=== PATIENT | female | born 1970 | race Caucasian/White ===

== ENCOUNTER 2019-07-30 01:27 | Emergency (ER) | payer BC ==
--- NOTE | 2019-07-30 02:16 | PDOC ---
History of Present Illness - History of Present Illness Initial Comments: 48 year old female with PMH HTN, HLD, and recent diagnosis of fatty liver and liver cyst presenting with epigastric sharp pain after eating meals and occasionally right upper quadrant pain. Patient states she has had pain for the past few weeks in her epigastrium and right upper quadrant so she had an ultrasound of her abdomen this past week which demonstrated the liver cyst and fatty liver without any gallbladder or other pathology. Denies any medication usage for these pains because she does not want to "complicate her fatty liver". 07/30/19 02:15 <Jung Massey - Last Filed: 07/30/19 02:15> <Cleo Brown - Last Filed: 07/30/19 04:51> - General Chief Complaint: Pain Stated Complaint: ABD PAIN Time Seen by Provider: 07/30/19 02:15 Attending Attestation - Resident Resident Name: Jung Massey - ED Attending Attestation I have performed the following: I have examined & evaluated the patient, The case was reviewed & discussed with the resident, I agree w/resident's findings & plan - HPI HPI: 07/30/19 04:48 Pt comes with abdominal pain She has GERD and has epigastric pain. She has no fever and no other complaints at this time. States that she is feeling better here - Physicial Exam PE: 07/30/19 04:50 VSS Afebrile ABd soft NT ND heart S1S2 RRR Lung CTAB ext no C/C/E - Medical Decision Making 07/30/19 04:51 Home with pepcid and analgesics. <Cleo Brown - Last Filed: 07/30/19 04:51> Past History <Jung Massey - Last Filed: 07/30/19 02:15> <Cleo Brown - Last Filed: 07/30/19 04:51> - Past Medical History Allergies/Adverse Reactions: Allergies Allergy/AdvReac Type Severity Reaction Status Date / Time No Known Allergies Allergy Verified 07/30/19 02:25 Home Medications: Ambulatory Orders Famotidine [Pepcid] 20 mg PO DAILY 20 Days #20 tablet 07/30/19 Mag Hydrox/Al Hydrox/Simeth [Mylanta Suspension -] 30 ml PO Q6H PRN 10 Days #1 bottle 07/30/19 Review of Systems - Review of Systems Constitutional: No: Chills, Diaphoresis, Fever Respiratory: No: Cough, Orthopnea, Shortness of Breath Cardiac (ROS): No: Chest Pain, Edema ABD/GI: Yes: Constipated. No: Diarrhea, Nausea, Vomiting : No: Burning, Dysuria, Discharge Integumentary: No: Lesions, Lumps, Pallor Neurological: No: Headache, Numbness, Paresthesia Psychiatric: No: Anxiety, Depression Hematologic/Lymphatic: No: Anemia, Blood Clots, Easy Bleeding <Jung Massey - Last Filed: 07/30/19 02:15> *Physical Exam - Physical Exam General Appearance: Yes: Nourished, Appropriately Dressed. No: Apparent Distress HEENT: positive: EOMI, ОЛЕГ, Normal ENT Inspection, Normal Voice Neck: positive: Trachea midline, Normal Thyroid, Supple. negative: Tender, Rigid Respiratory/Chest: positive: Lungs Clear, Normal Breath Sounds, Respiratory Distress. negative: Chest Tender, Accessory Muscle Use Cardiovascular: positive: Regular Rhythm, Regular Rate Gastrointestinal/Abdominal: positive: Normal Bowel Sounds, Flat, Soft. negative : Tender Lymphatic: negative: Adenopathy, Tenderness Musculoskeletal: positive: Normal Inspection. negative: Decreased Range of Motion Extremity: positive: Normal Capillary Refill, Normal Inspection, Normal Range of Motion. negative: Tender Integumentary: positive: Normal Color, Dry, Warm Neurologic: positive: Fully Oriented, Alert, Normal Mood/Affect, Normal Response , Motor Strength 5/5 <Jung Massey - Last Filed: 07/30/19 02:15> - Vital Signs Last Vital Signs Temp Pulse Resp BP Pulse Ox 98.2 F 82 17 146/88 100 07/30/19 01:30 07/30/19 01:30 07/30/19 01:30 07/30/19 01:30 07/30/19 01:30 <Cleo Brown - Last Filed: 07/30/19 04:51> ED Treatment Course - Medications Given in the ED: ED Medications Discontinued Medications Generic Name Dose Route Start Last Admin Trade Name Freq PRN Reason Stop Dose Admin Al Hydroxide/Mg Hydroxide 30 ml 07/30/19 02:34 07/30/19 02:39 Mylanta Oral Suspension - PO 07/30/19 02:35 30 ml ONCE ONE Administration Famotidine 10 mg 07/30/19 02:34 07/30/19 02:39 Acid Risk Control Director PO 07/30/19 02:35 10 mg ONCE ONE Administration <Cleo Brown - Last Filed: 07/30/19 04:51> Medical Decision Making - Medical Decision Making 48 year old female with epigastric and right upper quadrant pain for the past few weeks and known hepatic cysts with fatty liver. She describes an epigastric pain after eating that is most suspicious for GERD as her recent ruq ultrasound was negative for choleliths. Will DC patient with Pepcid, Maalox, and Tylenol use instructions as well as one dose of percocet here. 07/30/19 02:31 <Jung Massey - Last Filed: 07/30/19 02:15> Discharge - Discharge Information Problems reviewed: Yes - Admission No <Jung Massey - Last Filed: 07/30/19 02:15> <Cleo Brown - Last Filed: 07/30/19 04:51> - Discharge Information Clinical Impression/Diagnosis: Epigastric pain Condition: Stable Disposition: HOME - Additional Discharge Information Prescriptions: Famotidine [Pepcid] 20 mg PO DAILY 20 Days #20 tablet Mag Hydrox/Al Hydrox/Simeth [Mylanta Suspension -] 30 ml PO Q6H PRN 10 Days #1 bottle PRN Reason: Pain - Follow up/Referral Referrals: Grace Tanner [Primary Care Provider] - Keshav Bowen MD [Staff Physician] - Conner Carrasco MD [Staff Physician] - Ham Otto DO [Staff Physician] - - Patient Discharge Instructions Patient Printed Discharge Instructions: DI for Dyspepsia Additional Instructions: Please take the Pepcid and Maalox daily. Please take Tylenol for the upper stomach pain. Please see the GI doctor on this sheet at your appointment. Please return to ED if you have new or worsening symptoms. - Post Discharge Activity
[2019-07-30 02:26] VITALS: BP 146/88; PULSE 82; TEMP 98.2; BMI 30.3
[2019-07-30] MEDS ORDERED: MAG HYDROX/AL HYDROX/SIMETH 30 ML UNIT-DOSE CUP PO ONE (02:34)
[2019-07-30] MEDS ORDERED: FAMOTIDINE 10 MG TABLET PO ONE (02:34)
[2019-07-30] MEDS ORDERED: MAG HYDROX/AL HYDROX/SIMETH 30 ML UNIT-DOSE CUP ONE (02:37)
[2019-07-30] MEDS ORDERED: FAMOTIDINE 10 MG TABLET ONE (02:37)
== END 2019-07-30 02:45 | disposition home or self-care (01) ==
LOC: JER 01:27
DX: R10.13 Epigastric pain (principal); I10 Essential (primary) hypertension; E78.5 Hyperlipidemia, unspecified; K76.0 Fatty (change of) liver, not elsewhere classified
CPT/HCPCS: 99281-25

== ENCOUNTER 2019-08-02 11:46 | Emergency (ER) | payer BC ==
[2019-08-02 11:53] VITALS: BMI 31.8
--- NOTE | 2019-08-02 12:00 | PDOC ---
Rapid Medical Evaluation Chief Complaint: Pain Medical Evaluation: Allergies Allergy/AdvReac Type Severity Reaction Status Date / Time No Known Allergies Allergy Verified 08/02/19 11:53 Vital Signs Temp Pulse Resp BP Pulse Ox 97.9 F 90 18 159/71 99 08/02/19 11:47 08/02/19 11:47 08/02/19 11:47 08/02/19 11:47 08/02/19 11:47 08/02/19 11:58 This patient had a rapid evaluation by me cc: burning with urination x 1 week after unprotected sexual intercourse HPI: non tender abdomen orders: std screening including hiv and rpr, urine culture and urinalysis This patient will proceed to ed for further evaluation Discharge Disposition - Diagnosis Dysuria - Referrals - Patient Instructions - Post Discharge Activity
[2019-08-02] MEDS ORDERED: PANTOPRAZOLE SODIUM 40 MG VIAL IVPUSH ONE (13:25)
[2019-08-02] MEDS ORDERED: KETOROLAC TROMETHAMINE 30 MG/1 ML VIAL IVPUSH ONE (13:25)
[2019-08-02] MEDS ORDERED: PANTOPRAZOLE SODIUM 40 MG/100 ML BAG IVPB ONE (13:38)
[2019-08-02] MEDS ORDERED: KETOROLAC TROMETHAMINE 30 MG/1 ML VIAL ONE (13:38)
[2019-08-02 14:00] LABS: ALBUMIN 4.2 g/dl (3.4-5.0); ALK PHOS 79 U/L (45-117); ANION GAP 8 MMOL/L (8-16); BILIRUBIN,TOTAL 0.4 mg/dL (0.2-1); BLOOD UREA NITROGEN 8.6 mg/dL (7-18); CALCIUM 9.3 mg/dL (8.5-10.1); CHLORIDE 104 mmol/L (98-107); CO2 26 mmol/L (21-32); CREATININE 0.7 mg/dL (0.55-1.3); GLUCOSE,RANDOM 91 mg/dL (74-106); LIPASE 184 U/L (73-393); MAGNESIUM 2.4 mg/dL (1.8-2.4); POTASSIUM 4.2 mmol/L (3.5-5.1); SGOT/AST 16 U/L (15-37); SGPT/ALT 19 U/L (13-61); SODIUM 138 mmol/L (136-145); TOT PROT 7.9 g/dl (6.4-8.2)
[2019-08-02 14:02] LABS: BASO % 0.3 % (0-2.0); EOS % 0.3 % (0-4.5); HEMATOCRIT 37.2 % (32.4-45.2); HEMOGLOBIN 11.8 GM/dL (10.7-15.3); MCH 22.8 pg (25.7-33.7); MCHC 31.8 g/dl (32.0-36.0); MEAN CELL VOLUME 71.8 fl (80-96); MEAN PLT VOLUME 8.1 fl (7.5-11.1); MONO % 7.2 % (3.8-10.2); NEUT % 64.2 % (42.8-82.8); PLATELET COUNT 308 K/MM3 (134-434); RBC 5.19 M/mm3 (3.60-5.2); WHITE BLOOD COUNT 7.9 K/mm3 (4.0-10.0)
[2019-08-02 14:41] LABS: ANISOCYTOSIS 1+; MACROCYTOSIS 0; OVALOCYTE 1+; PLATELET ESTIMATE NORMAL
--- NOTE | 2019-08-02 14:54 | PDOC ---
History of Present Illness - General Chief Complaint: Pain Stated Complaint: ABD PAIN Time Seen by Provider: 08/02/19 12:47 History Source: Patient Exam Limitations: No Limitations - History of Present Illness Travel History: No Initial Comments: 08/02/19 14:48 48 y/o female with history of GERD and fatty liver presents the ED with complaints of generalized abdominal pain greater in the lower quadrants although she states the pain was worse in her upper abdominal area a few days ago when she came to the ER patient states pain is sharp and intermittent without aggravating or alleviating factors now associated with diarrhea. Patient states had 2 episodes of watery diarrhea yesterday and 5 today. Patient has no urinary complaints, complaints of nausea, fever or chills patient also denies recent travel, or recent illness. Timing/Duration: reports: getting worse Quality: reports: moderate, cramping Abdominal Pain Onset Location: reports: generalized abdomen Activities at Onset: reports: none Aggravating Factors: improves with: None Alleviating Factors: improves with: None Past History - Travel Traveled outside of the country in the last 30 days: No Close contact w/someone who was outside of country & ill: No - Past Medical History Allergies/Adverse Reactions: Allergies Allergy/AdvReac Type Severity Reaction Status Date / Time No Known Allergies Allergy Verified 08/02/19 12:41 Home Medications: Ambulatory Orders NK [No Known Home Medication] 08/02/19 COPD: No HTN: Yes (NO MEDS) - Psycho Social/Smoking Cessation Hx Smoking History: Never smoked Have you smoked in the past 12 months: No Hx Alcohol Use: No Drug/Substance Use Hx: No Patient Lives Alone: No Lives with/in: spouse/SO Abd/GI Specific PMHX - Complaint Specific PMHX Colitis: No Diverticulitis: No GERD: Yes Review of Systems - Review of Systems Able to Perform ROS?: No Is the patient limited Japanese proficient: No Constitutional: No: Symptoms Reported HEENTM: No: Symptoms Reported Respiratory: No: Symptoms reported Cardiac (ROS): No: Symptoms Reported ABD/GI: Yes: Diarrhea, Abdominal cramping. No: Poor Appetite, Poor Fluid Intake : No: Symptoms Reported Musculoskeletal: No: Symptoms Reported Integumentary: No: Symptoms Reported Neurological: No: Symptoms reported Hematologic/Lymphatic: No: Symptoms Reported *Physical Exam - Vital Signs Last Vital Signs Temp Pulse Resp BP Pulse Ox 97.9 F 90 18 159/71 99 08/02/19 11:47 08/02/19 11:47 08/02/19 11:47 08/02/19 11:47 08/02/19 11:47 - Physical Exam General Appearance: Yes: Nourished, Appropriately Dressed. No: Apparent Distress HEENT: negative: Pale Conjunctivae Neck: positive: Normal Thyroid Respiratory/Chest: positive: Lungs Clear, Normal Breath Sounds. negative: Respiratory Distress, Accessory Muscle Use Cardiovascular: positive: Regular Rhythm, Regular Rate. negative: Murmur Gastrointestinal/Abdominal: positive: Normal Bowel Sounds, Soft, Tenderness ( Generalized but greater in the right and left lower quadrant). negative: Distended, Guarding, Rebound Musculoskeletal: negative: CVA Tenderness Extremity: positive: Normal Inspection Integumentary: positive: Normal Color, Warm, Moist Neurologic: positive: Motor Strength 5/5 (Ambulatory) ED Treatment Course - LABORATORY CBC & Chemistry Diagram: 08/02/19 12:30 08/02/19 12:30 - ADDITIONAL ORDERS Additional order review: Laboratory Results 08/02/19 12:30 Sodium 138 Potassium 4.2 Chloride 104 Carbon Dioxide 26 Anion Gap 8 BUN 8.6 Creatinine 0.7 Est GFR (CKD-EPI)AfAm 117.91 Est GFR (CKD-EPI)NonAf 101.74 Random Glucose 91 Calcium 9.3 Magnesium 2.4 Total Bilirubin 0.4 AST 16 ALT 19 Alkaline Phosphatase 79 Creatine Kinase 117 Troponin I < 0.02 Total Protein 7.9 Albumin 4.2 Lipase 184 08/02/19 12:30 RBC 5.19 MCV 71.8 L MCHC 31.8 L RDW 21.0 H MPV 8.1 Neutrophils % 64.2 Lymphocytes % 28.0 Monocytes % 7.2 Eosinophils % 0.3 Basophils % 0.3 - RADIOLOGY Radiology Studies Ordered: Category Date Time Status ABDOMEN & PELVIS CT W/O CONTR [CT] Stat CT Scan 08/02/19 14:19 Ordered - Medications Given in the ED: ED Medications Discontinued Medications Generic Name Dose Route Start Last Admin Trade Name Freq PRN Reason Stop Dose Admin Ketorolac Tromethamine 30 mg 08/02/19 13:25 08/02/19 13:47 Toradol Injection - IVPUSH 08/02/19 13:26 30 mg ONCE ONE Administration Pantoprazole Sodium 40 mg 08/02/19 13:25 08/02/19 13:47 Protonix Iv IVPUSH 08/02/19 13:26 40 mg ONCE ONE Administration Medical Decision Making - Medical Decision Making 08/02/19 14:32 Chief complaint: Generalized abdominal pain for the past few weeks now associated with diarrhea since yesterday no other complaints. Patient prescribed Pepcid upon previous ED discharge which she states has not alleviated her discomfort. Exam: Patient with generalized abdominal tenderness worsened in the right and left lower quadrant vital signs stable Plan labs, IV fluids, Protonix, Toradol along with urine will consider imaging once labs are reviewed patient we will attempt to give a stool specimen 08/02/19 16:50 Laboratory Tests 08/02/19 08/02/19 08/02/19 12:30 12:30 14:30 WBC 7.9 Hgb 11.8 Hct 37.2 RDW 21.0 H Plt Count 308 MPV 8.1 Sodium 138 Potassium 4.2 Chloride 104 Carbon Dioxide 26 Anion Gap 8 Creatinine 0.7 Calcium 9.3 Magnesium 2.4 Total Bilirubin 0.4 AST 16 ALT 19 Alkaline Phosphatase 79 Troponin I < 0.02 Albumin 4.2 Lipase 184 Urine Ketones 1+ H Ur Leukocyte Esterase Negative Urine HCG, Qual 08/02/19 14:30 WBC Hgb Hct RDW Plt Count MPV Sodium Potassium Chloride Carbon Dioxide Anion Gap Creatinine Calcium Magnesium Total Bilirubin AST ALT Alkaline Phosphatase Troponin I Albumin Lipase Urine Ketones Ur Leukocyte Esterase Urine HCG, Qual Negative Patient states feeling much better. Awaiting CT report. Did send stool culture and stool for C. difficile 08/02/19 17:55 CT shows adequate distended gallbladder. There is no evidence of small bowel obstruction. Scattered diverticula in the colon without evidence of diverticulitis or colitis. Otherwise a tiny fat containing umbilical hernia is noted. No free air or free fluid within the abdomen or pelvis. Patient with likely GI virus stool specimens pending. patient will be contacted if positive Discharge - Discharge Information Problems reviewed: Yes Clinical Impression/Diagnosis: Diarrhea Condition: Improved Disposition: HOME - Admission No - Follow up/Referral Referrals: Grace Tanner [Primary Care Provider] - - Patient Discharge Instructions Patient Printed Discharge Instructions: DI for Diarrhea and Traveler's Diarrhea -- Adult Additional Instructions: Please follow a diet containing bananas rice apples and tea which will help bind your stool . You will be contacted once the stool specimens come back if positive. Otherwise if symptoms worsen please return to the ED. otherwise follow-up with your primary care physician. - Post Discharge Activity
[2019-08-02 16:03] LABS: PH,URINE 6.5 (5.0-8.0); URINE APPEARANCE CLEAR; URINE BILIRUBIN NEGATIVE (NEGATIVE); URINE COLOR YELLOW; URINE GLUCOSE (UA) NEGATIVE (NEGATIVE); URINE KETONE 1+ (NEGATIVE); URINE LEUK ESTERASE NEGATIVE (NEGATIVE); URINE NITRITE NEGATIVE (NEGATIVE); URINE PROTEIN NEGATIVE (NEGATIVE); URINE UROBILINOGEN 0.2 mg/dL (0.2-1.0)
[2019-08-02 18:36] VITALS: BP 126/77; PULSE 78; TEMP 97.9
== END 2019-08-02 17:45 | disposition home or self-care (01) ==
LOC: JER 11:46
PROC: 3E033GC Introduction of Other Therapeutic Substance into Peripheral Vein, Percutaneous Approach (ICD-10-PCS; principal; 2019-08-02)
PROC: 3E0333Z Introduction of Anti-inflammatory into Peripheral Vein, Percutaneous Approach (ICD-10-PCS; 2019-08-02)
DX: R19.7 Diarrhea, unspecified (principal)
CPT/HCPCS: 36415; 74176-TC; 80053; 81003; 82550; 83690; 83735; 84484; 84703; 85025; 87045; 87046; 87077; 87086; 87324; 87449; 99283-25

== ENCOUNTER 2019-09-05 09:14 | Day surgery (SDC) | payer BC ==
[2019-09-02 14:55] VITALS: BMI 29.9
[2019-09-05 13:52] VITALS: BP 132/74; PULSE 72; TEMP 98.2
--- NOTE | 2019-09-06 16:47 | PATH ---
Surgical Pathology Report Patient Name: MARGIE KEATING [facility]. Rec. #: [id number] /Age/Gender: 1970 (Age: 48) / F Account: [id number] Location: U-ENDOSCOPY Taken: 09/05/2019 Received: 09/05/2019 Reported: 09/06/2019 Physicians: Deena Sarkar M.D. Specimen(s) Received A: DUODENUM B: STOMACH C: ASCENDING COLON D: DESCENDING COLON Clinical History Dyspepsia, change in bowel habits, abdominal pain, iron deficiency anemia Postoperative diagnosis: Normal EGD, normal colon Final Diagnosis A. DUODENUM, BIOPSY: DUODENAL MUCOSA WITH NO SIGNIFICANT PATHOLOGIC CHANGE. NO HISTOLOGIC EVIDENCE OF INTRAEPITHELIAL LYMPHOCYTOSIS. B. STOMACH, BIOPSY: GASTRIC MUCOSA WITH CHRONIC GASTRITIS. IMMUNOSTAIN FOR H. PYLORI IS NEGATIVE. NEGATIVE FOR INTESTINAL METAPLASIA. C. ASCENDING COLON, BIOPSY: COLONIC MUCOSA WITH NO SIGNIFICANT PATHOLOGIC CHANGE. D. DESCENDING COLON, BIOPSY: COLONIC MUCOSA WITH NO SIGNIFICANT PATHOLOGIC CHANGE. Electronically Signed Ellen Jimenez M.D. Gross Description A. Received in formalin, labeled "biopsy duodenum" are 4 medellin, irregular portions of soft tissue ranging from 0.3-0.5 cm. in greatest dimension. The specimens are submitted in toto in one cassette. B. Received in formalin, labeled "biopsy stomach" are 4 medellin, irregular portions of soft tissue ranging from 0.3-0.5 cm. in greatest dimension. The specimens are submitted in toto in one cassette. C. Received in formalin, labeled "biopsy ascending colon" are 4 medellin, irregular portions of soft tissue ranging from 0.3-0.4 cm. in greatest dimension. The specimens are submitted in toto in one cassette. D. Received in formalin, labeled "biopsy descending colon" are 4 medellin, irregular portions of soft tissue ranging from 0.2-0.4 cm. in greatest dimension. The specimens are submitted in toto in one cassette. 09/05/2019 [facility]/09/05/2019
== END 2019-09-05 13:30 | disposition home or self-care (01) ==
LOC: JASU-ENDO 09:14
PROVIDERS: ATTEND Internal Medicine Gastroenterology
PROC: 0DBF8ZX Excision of Right Large Intestine, Via Natural or Artificial Opening Endoscopic, Diagnostic (ICD-10-PCS; 2019-09-05)
PROC: 0DB98ZX Excision of Duodenum, Via Natural or Artificial Opening Endoscopic, Diagnostic (ICD-10-PCS; 2019-09-05)
PROC: 0DB68ZX Excision of Stomach, Via Natural or Artificial Opening Endoscopic, Diagnostic (ICD-10-PCS; 2019-09-05)
PROC: 0DBG8ZX Excision of Left Large Intestine, Via Natural or Artificial Opening Endoscopic, Diagnostic (ICD-10-PCS; principal; 2019-09-05 10:00)
DX: K29.50 Unspecified chronic gastritis without bleeding (principal); R10.9 Unspecified abdominal pain; R19.7 Diarrhea, unspecified
CPT/HCPCS: 81025; 88305-TC; 88342-TC